=== PATIENT | male | born 1945 | race Caucasian/White ===

== ENCOUNTER → 2021-08-11 | Outpatient (CLI) | payer MEDICARE, OTHER | LOC: HEART 5 13:18 | DX: J44.9 Chronic obstructive pulmonary disease, unspecified (principal); R06.83 Snoring | CPT/HCPCS: 36600; 82803; 94060; 94729 ==

== ENCOUNTER → 2021-09-03 | Outpatient (CLI) | payer MEDICARE | LOC: KOH-I 08-30 11:00 → CT 08-30 11:00 → KOH-I 13:00 | DX: F17.210 Nicotine dependence, cigarettes, uncomplicated (principal); R06.83 Snoring; R91.1 Solitary pulmonary nodule | CPT/HCPCS: 71271 ==